=== PATIENT | female | born 1960 | race Caucasian/White ===

== ENCOUNTER → 2017-12-01 09:07 | Outpatient (POV) | payer BC, SELFPAY ==
[2017-12-01 09:24] VITALS: BP 148/107; PULSE 89; RESP 18; O2SAT 98
--- NOTE | 2017-12-01 09:51 | HMH.PMCON ---
Assessment and Plan (1) Postlaminectomy syndrome Current visit: Yes Status: Chronic Category: Medical Code(s): M96.1 - Postlaminectomy syndrome, not elsewhere classified (2) Degenerative disc disease, cervical Current visit: Yes Status: Chronic Category: Medical Code(s): M50.30 - Other cervical disc degeneration, unspecified cervical region (3) Cervical radiculopathy Current visit: Yes Status: Chronic Category: Medical Code(s): M54.12 - Radiculopathy, cervical region (4) Cervical spondylosis Current visit: Yes Status: Chronic Category: Medical Code(s): M47.812 - Spondylosis without myelopathy or radiculopathy, cervical region - Assessment and plan all Dx Assessment and Plan for all problems:: We will schedule the patient for a psychological evaluation to determine if she is a neurostimulator candidate. I believe given her symptomology she may receive good relief long-term with this therapy. Patient and I had a discussion about the trial and implantation process. I answered all her questions and provided information for her. Patient is going to call the office if she has any additional questions. Patient has tried and failed multiple therapies over the years. I believe that this may be beneficial to help increase her functionality. I will follow-up with this patient after her trial. This note was dictated using voice recognition software and may contain errors or omissions HPI - Data of Consult Consult date: 12/01/17 Requesting Physician: Shima Alegre APRN Primary Care Provider: Referral Provider, - Consult Narrative Reason for consult: Neck pain History of present illness: Ms. Villalba is a 57 year old female who presents today for consultation in regards to her neck pain. Patient has had previous laminotomy and foraminotomy with decompression at C5-C6. Patient has been controlling her pain utilizing facet joint injections and RFA's of the cervical spine. Patient states that the last for a while however her pain is beginning to return. Patient is interested in more long-term control of her pain symptoms. Patient has tried and failed injections, chiropractic therapy, physical therapy, massage therapy, dry needling, medications, anti-inflammatories. Patient does not want to be on narcotic medications due to side effects. Patient is interested in potentially a neurostimulator trial. Patient rates her pain a 3 out of 10 today. She states is constant. She states it runs up into her skull and into both shoulders and her left arm. CC: Shima Alegre APRN [facility] History I have reviewed the patient's past medical history: Yes Medical History: Reports:: Hyperlipidemia, Hypertension Denies:: Diabetes Mellitus Type 1, Diabetes Mellitus Type 2 Other Medical History: Reports: Arthritis Laterality Cases: Bilateral: Arthroscopy Knee, Arthroscopy Shoulder, Carpal Tunnel Release, Total Knee Replacement Other Surgeries: Yes: Hysterectomy-Total - *Social History Alcohol Intake: never Occupational Status: other Housing: house - Psychiatric History Expresses thoughts of harming self/others: None Suicide Plan Description: Clear *Family Hx:: Hyperlipidemia, Hypertension Review of Systems - Review of Systems ROS General: no recent weight change, no fever, no sleep disturbances Respiratory: no cough, no shortness of air, no recurring pulmonary infections Cardiovascular/Peripheral Vascular: No chest pain, No palpitations, no edema, no shortness of breath. Gastrointestinal: normal bowel movements this time Genitourinary: no incontinence Musculoskeletal: Neck pain, bilateral arm pain Psychiatric: normal mood/ affect Neurological: [denies weakness in extremities], [denies balance issues] Meds Home Medications Medication Instructions Recorded Confirmed Type Aspirin/Acetaminophen/Caffeine 1 each PO DAILY 12/01/17 12/01/17 History [Excedrin Migraine Caplet] De
--- NOTE | 2017-12-01 09:54 | P.CONS_ITS ---
Assessment and Plan (1) Postlaminectomy syndrome Current visit: Yes Status: Chronic Category: Medical Code(s): M96.1 - Postlaminectomy syndrome, not elsewhere classified (2) Degenerative disc disease, cervical Current visit: Yes Status: Chronic Category: Medical Code(s): M50.30 - Other cervical disc degeneration, unspecified cervical region (3) Cervical radiculopathy Current visit: Yes Status: Chronic Category: Medical Code(s): M54.12 - Radiculopathy, cervical region (4) Cervical spondylosis Current visit: Yes Status: Chronic Category: Medical Code(s): M47.812 - Spondylosis without myelopathy or radiculopathy, cervical region - Assessment and plan all Dx Assessment and Plan for all problems:: We will schedule the patient for a psychological evaluation to determine if she is a neurostimulator candidate. I believe given her symptomology she may receive good relief long-term with this therapy. Patient and I had a discussion about the trial and implantation process. I answered all her questions and provided information for her. Patient is going to call the office if she has any additional questions. Patient has tried and failed multiple therapies over the years. I believe that this may be beneficial to help increase her functionality. I will follow-up with this patient after her trial. This note was dictated using voice recognition software and may contain errors or omissions HPI - Data of Consult Consult date: 12/01/17 Requesting Physician: Shima Alegre APRN Primary Care Provider: Referral Provider, - Consult Narrative Reason for consult: Neck pain History of present illness: Ms. Villalba is a 57 year old female who presents today for consultation in regards to her neck pain. Patient has had previous laminotomy and foraminotomy with decompression at C5-C6. Patient has been controlling her pain utilizing facet joint injections and RFA's of the cervical spine. Patient states that the last for a while however her pain is beginning to return. Patient is interested in more long-term control of her pain symptoms. Patient has tried and failed injections, chiropractic therapy, physical therapy, massage therapy, dry needling, medications, anti-inflammatories. Patient does not want to be on narcotic medications due to side effects. Patient is interested in potentially a neurostimulator trial. Patient rates her pain a 3 out of 10 today. She states is constant. She states it runs up into her skull and into both shoulders and her left arm. CC: Shima Alegre APRN [facility] History I have reviewed the patient's past medical history: Yes Medical History: Reports:: Hyperlipidemia, Hypertension Denies:: Diabetes Mellitus Type 1, Diabetes Mellitus Type 2 Other Medical History: Reports: Arthritis Laterality Cases: Bilateral: Arthroscopy Knee, Arthroscopy Shoulder, Carpal Tunnel Release, Total Knee Replacement Other Surgeries: Yes: Hysterectomy-Total - *Social History Alcohol Intake: never Occupational Status: other Housing: house - Psychiatric History Expresses thoughts of harming self/others: None Suicide Plan Description: Clear *Family Hx:: Hyperlipidemia, Hypertension Review of Systems - Review of Systems ROS General: no recent weight change, no fever, no sleep disturbances Respiratory: no cough, no shortness of air, no recurring pulmonary infections Cardiovascular/Peripheral Vascular: No chest pain, No palpitations, no edema, no shortness of breath. Gastrointestinal: normal bowel movements this time
== END ==
PROVIDERS: Visit Provider Clinical Nurse Specialist Family Health
DX: M96.1 Postlaminectomy syndrome, not elsewhere classified (principal); M50.30 Other cervical disc degeneration, unspecified cervical region; M54.12 Radiculopathy, cervical region; M47.812 Spondylosis without myelopathy or radiculopathy, cervical region
CPT/HCPCS: 99202

== ENCOUNTER → 2018-04-26 10:28 | Outpatient (POV) | payer BC, SELFPAY ==
[2018-04-26 10:48] VITALS: BP 137/98; PULSE 79; RESP 18; O2SAT 98; BMI 30.9
--- NOTE | 2018-04-26 11:06 | P.CONS_ITS ---
[facility] Pain Management SOAP Note Subjective:: Patient is a pleasant 57-year-old white female who presents today for follow-up. At her first visit we had sent her for psychological evaluation to determine if she was a good spinal cord stimulator candidate. Patient was determined to be a good candidate however patient would like to be consulted by a neurosurgeon prior to deciding. Patient is interested in a more long-term control of her pain symptoms. Patient has had a laminotomy and a foraminotomy with decompression of the C5-C6. Patient states that her pain has returned and she is now having weakness in her arms along with pain and numbness and tingling which is very positional. Patient has not had an MRI for quite some time. Patient's tried and failed injections, chiropractic therapy, physical therapy, massage therapy, dry needling, medications, anti-inflammatories. Patient is unable to take narcotic medications due to side effects. She rates her pain today a 6 out of 10. ROS General: no recent weight change, no fever, no sleep disturbances Respiratory: no cough, no shortness of air, no recurring pulmonary infections Cardiovascular/Peripheral Vascular: No chest pain, No palpitations, no edema, no shortness of breath. Gastrointestinal: no incontinence, normal bowel movements reported Genitourinary: no incontinence Musculoskeletal: Neck pain, arm pain Psychiatric: normal mood/ affect Neurological: [denies weakness in extremities], [denies balance issues] Objective:: Physical Exam General: Alert and oriented x3, no acute distress, pleasant and cooperative, [on room air] Lungs: Resps E/U, Symmetrical chest expansion, Eyes: PERRL Musculoskeletal: Flexion and extension of cervical spine somewhat guarded secondary to pain, deep tendon reflexes normal, strength in upper and lower extremities [5/5], normal gait noted Neurological: speech clear, child care center administrator equal, no gross sensory deficits Assessment:: Postlaminectomy syndrome, degenerative disc disease cervical spinal cervical radiculopathy Plan:: We will schedule new cervical MRI for the patient. We will follow-up with her and discuss the findings after her MRI is complete. We will also send her to Dr. Feliciano for a consultation. I have instructed the patient to call the office if she has any issues prior to her next appointment. This note was dictated using voice recognition software and may contain errors or omissions
--- NOTE | 2018-04-28 14:43 | PC.NURSE ---
VOICEMAIL LEFT FOR PT TO RETURN CALL. PT IS SCHEDULED WITH DR JOSELUIS COHEN May AT 1130AM. PT WILL BE INSTRUCTED TO TAKE A COPY OF HER MRI WITH HER TO APPT.
== END ==
PROVIDERS: Visit Provider Clinical Nurse Specialist Family Health
DX: M96.1 Postlaminectomy syndrome, not elsewhere classified (principal); M50.10 Cervical disc disorder with radiculopathy, unspecified cervical region
CPT/HCPCS: 99213

== ENCOUNTER → 2018-05-31 13:45 | Outpatient (POV) | payer BC, SELFPAY ==
[2018-05-31 14:01] VITALS: BP 147/95; PULSE 99; RESP 18; O2SAT 98; BMI 30.9
--- NOTE | 2018-05-31 14:10 | HMH.PAINSOAP ---
[facility] Pain Management SOAP Note Subjective:: Patient is a pleasant 57-year-old white female who presents today for follow-up. Patient was denied her MRI. Consent for psychological evaluation to determine if she was a good spinal cord stimulator candidate. She was deemed a good candidate however she wanted a consult from her neurosurgeon prior to deciding. I do believe that that would be in her best interest. Patient is unable to get an MRI due to her insurance denial. Patient has had a laminotomy and foraminotomies with decompression of the C5-C6 levels in the past. She states that her pain is returned and is now having weakness in her arms. Patient rates her pain a 5 out of 10 today. Patient has tried and failed injections, chiropractic therapy, physical, massage therapy, dry needling, medications, anti-inflammatories. Patient is unable to take narcotic medications due to side effects. Patient is having some muscle cramps in her cervical paraspinous due to pain. We will set her up for some trigger point injections. ROS General: no recent weight change, no fever, no sleep disturbances Respiratory: no cough, no shortness of air, no recurring pulmonary infections Cardiovascular/Peripheral Vascular: No chest pain, No palpitations, no edema, no shortness of breath. Gastrointestinal: no incontinence, normal bowel movements reported Genitourinary: no incontinence Musculoskeletal: Neck pain, arm pain, myofascial pain Psychiatric: normal mood/ affect Neurological: [denies weakness in extremities], [denies balance issues] Objective:: Physical Exam General: Alert and oriented x3, no acute distress, pleasant and cooperative, [on room air] Lungs: Resps E/U, Symmetrical chest expansion, Eyes: PERRL Musculoskeletal: Flexion and extension of cervical spine somewhat guarded secondary to pain, deep tendon reflexes normal, strength in upper and lower extremities [5/5], normal gait noted Neurological: speech clear, chief innovation officer equal, no gross sensory deficits Assessment:: degenerative disc disease cervical spine with cervical postlaminectomy syndrome, myofascial pain syndrome Plan:: We will schedule cervical trigger point bilateral paraspinous. I do believe she still needs an MRI. We may return to the neurostimulator if we cannot get a neurosurgical consultation. This note was dictated using voice recognition software and may contain errors or omissions
--- NOTE | 2018-05-31 14:13 | P.CONS_ITS ---
[facility] Pain Management SOAP Note Subjective:: Patient is a pleasant 57-year-old white female who presents today for follow-up. Patient was denied her MRI. Consent for psychological evaluation to determine if she was a good spinal cord stimulator candidate. She was deemed a good candidate however she wanted a consult from her neurosurgeon prior to deciding. I do believe that that would be in her best interest. Patient is unable to get an MRI due to her insurance denial. Patient has had a laminotomy and foraminotomies with decompression of the C5-C6 levels in the past. She states that her pain is returned and is now having weakness in her arms. Patient rates her pain a 5 out of 10 today. Patient has tried and failed injections, chi ropractic therapy, physical, massage therapy, dry needling, medications, anti- inflammatories. Patient is unable to take narcotic medications due to side effects. Patient is having some muscle cramps in her cervical paraspinous due to pain. We will set her up for some trigger point injections. ROS General: no recent weight change, no fever, no sleep disturbances Respiratory: no cough, no shortness of air, no recurring pulmonary infections Cardiovascular/Peripheral Vascular: No chest pain, No palpitations, no edema, no shortness of breath. Gastrointestinal: no incontinence, normal bowel movements reported Genitourinary: no incontinence Musculoskeletal: Neck pain, arm pain, myofascial pain Psychiatric: normal mood/ affect Neurological: [denies weakness in extremities], [denies balance issues] Objective:: Physical Exam General: Alert and oriented x3, no acute distress, pleasant and cooperative, [on room air] Lungs: Resps E/U, Symmetrical chest expansion, Eyes: PERRL Musculoskeletal: Flexion and extension of cervical spine somewhat guarded secondary to pain, deep tendon reflexes normal, strength in upper and lower extremities [5/5], normal gait noted Neurological: speech clear, dry kiln loader equal, no gross sensory deficits Assessment:: degenerative disc disease cervical spine with cervical postlaminectomy syndrome, myofascial pain syndrome Plan:: We will schedule cervical trigger point bilateral paraspinous. I do believe she still needs an MRI. We may return to the neurostimulator if we cannot get a neurosurgical consultation. This note was dictated using voice recognition software and may contain errors or omissions
== END ==
PROVIDERS: Visit Provider Clinical Nurse Specialist Family Health
DX: M50.90 Cervical disc disorder, unspecified, unspecified cervical region (principal); M96.1 Postlaminectomy syndrome, not elsewhere classified; M79.18 Myalgia, other site
CPT/HCPCS: 99213

== ENCOUNTER → 2018-07-13 09:17 | Outpatient (POV) | payer BC, SELFPAY ==
[2018-07-13 09:28] VITALS: BP 177/98; PULSE 92; RESP 18; O2SAT 98; BMI 32.4
--- NOTE | 2018-07-13 10:04 | P.CONS_ITS ---
[facility] Pain Management SOAP Note Subjective:: Patient is a pleasant 57-year-old white female who presents today for follow-up. Patient was denied her MRI. Patient and I discussed a stimulator however she would like to hold off on that. Patient is having neck pain radiating into her left side. She did have trigger point injections which did not last very long. She presents today with her [id number]. Patient has had laminotomies and foraminotomies with decompression of C5-C6 in the past. Patient has not had any recent epidural steroid injections however she did used to get facet joint injections, RFA's and epidurals from Dr. So. She rates her pain a 6 out of 10 today. She is tried and failed injections, chiropractic therapy, physical therapy, massage therapy, dry needling, medications, anti-inflammatories. She is unable to take narcotic medication due to side effects. Patient is interested in seeing Dr. Mcmahan. ROS General: no recent weight change, no fever, no sleep disturbances Respiratory: no cough, no shortness of air, no recurring pulmonary infections Cardiovascular/Peripheral Vascular: No chest pain, No palpitations, no edema, no shortness of breath. Gastrointestinal: no incontinence, normal bowel movements reported Genitourinary: no incontinence Musculoskeletal: Neck pain, left arm pain Psychiatric: normal mood/ affect Neurological: [denies weakness in extremities], [denies balance issues] Objective:: Physical Exam General: Alert and oriented x3, no acute distress, pleasant and cooperative, [on room air] Lungs: Resps E/U, Symmetrical chest expansion, Eyes: PERRL Musculoskeletal: Flexion and extension of cervical spine somewhat guarded secondary to pain, deep tendon reflexes normal, strength in upper and lower extremities [5/5], normal gait noted Neurological: speech clear, biofuels product manager equal, no gross sensory deficits Assessment:: Degenerative disc disease cervical spinal cervical radiculopathy, postlaminectomy Plan:: We will schedule C5-C6 cervical epidural steroid injection to see if this is beneficial. We will order an MRI to help determine pathology and we will send her to a neurosurgeon for consultation. I will follow-up with the patient after her epidural injection. Patient's been instructed to call the office if she has any issues prior to her next appointment. This note was dictated using voice recognition software and may contain errors or omissions
== END ==
PROVIDERS: Visit Provider Clinical Nurse Specialist Family Health
DX: M50.10 Cervical disc disorder with radiculopathy, unspecified cervical region (principal); M96.1 Postlaminectomy syndrome, not elsewhere classified
CPT/HCPCS: 99213

== ENCOUNTER → 2018-08-30 10:21 | Outpatient (POV) | payer BC, SELFPAY ==
[2018-08-30 10:34] VITALS: BP 126/87; PULSE 97; RESP 18; O2SAT 98; BMI 32.5
--- NOTE | 2018-08-30 10:40 | HMH.PAINSOAP ---
[facility] Pain Management SOAP Note Subjective:: Patient is a pleasant 58-year-old white female who presents today to follow-up after her cervical fusion. Patient states she still having a little bit of swelling however the pain has started to alleviate and she has no numbness and tingling in her hands at this time. Patient is utilizing anti-inflammatories to help with the pain. She is having some difficulty with swallowing however since they did an anterior approach she has a little swelling around the incision area. Patient is following up with the surgeon on the of this month. Patient is already weaned herself off of her pain pills. She rates her pain a 6 out of 10 today. ROS General: no recent weight change, no fever, no sleep disturbances Respiratory: no cough, no shortness of air, no recurring pulmonary infections Cardiovascular/Peripheral Vascular: No chest pain, No palpitations, no edema, no shortness of breath. Gastrointestinal: no incontinence, normal bowel movements reported Genitourinary: no incontinence Musculoskeletal: Neck pain Psychiatric: normal mood/ affect Neurological: [denies weakness in extremities], [denies balance issues] Objective:: Physical Exam General: Alert and oriented x3, no acute distress, pleasant and cooperative, [on room air] Lungs: Resps E/U, Symmetrical chest expansion, Eyes: PERRL Musculoskeletal: Flexion and extension of cervical spine somewhat guarded secondary to pain, deep tendon reflexes normal, strength in upper and lower extremities [5/5], normal gait noted Neurological: speech clear, personal shopper equal, no gross sensory deficits Assessment:: Degenerative disc disease cervical spine and postlaminectomy syndrome cervical spine Plan:: We will see the patient back in 1 month and reassess her symptoms at that time. She is been instructed to call the office if she has any issues prior to her next appointment. Dr. Vegas has reviewed this note and agrees with this plan of care. This note was dictated using voice recognition software and may contain errors or omissions
--- NOTE | 2018-08-30 10:43 | P.CONS_ITS ---
[facility] Pain Management SOAP Note Subjective:: Patient is a pleasant 58-year-old white female who presents today to follow-up after her cervical fusion. Patient states she still having a little bit of swelling however the pain has started to alleviate and she has no numbness and tingling in her hands at this time. Patient is utilizing anti-inflammatories to help with the pain. She is having some difficulty with swallowing however since they did an anterior approach she has a little swelling around the incision area. Patient is following up with the surgeon on the of this month. Patient is already weaned herself off of her pain pills. She rates her pain a 6 out of 10 today. ROS General: no recent weight change, no fever, no sleep disturbances Respiratory: no cough, no shortness of air, no recurring pulmonary infections Cardiovascular/Peripheral Vascular: No chest pain, No palpitations, no edema, no shortness of breath. Gastrointestinal: no incontinence, normal bowel movements reported Genitourinary: no incontinence Musculoskeletal: Neck pain Psychiatric: normal mood/ affect Neurological: [denies weakness in extremities], [denies balance issues] Objective:: Physical Exam General: Alert and oriented x3, no acute distress, pleasant and cooperative, [on room air] Lungs: Resps E/U, Symmetrical chest expansion, Eyes: PERRL Musculoskeletal: Flexion and extension of cervical spine somewhat guarded secondary to pain, deep tendon reflexes normal, strength in upper and lower extremities [5/5], normal gait noted Neurological: speech clear, hair tinter equal, no gross sensory deficits Assessment:: Degenerative disc disease cervical spine and postlaminectomy syndrome cervical spine Plan:: We will see the patient back in 1 month and reassess her symptoms at that time. She is been instructed to call the office if she has any issues prior to her next appointment. Dr. Vegas has reviewed this note and agrees with this plan of care. This note was dictated using voice recognition software and may contain errors or omissions
== END ==
PROVIDERS: Visit Provider Clinical Nurse Specialist Family Health
DX: M50.30 Other cervical disc degeneration, unspecified cervical region (principal); M96.1 Postlaminectomy syndrome, not elsewhere classified
CPT/HCPCS: 99213

== ENCOUNTER 2018-12-18 18:57 | Emergency (ER) | payer BC, SELFPAY ==
[2018-12-18 19:17] VITALS: BP 120/90; PULSE 74; RESP 16; TEMP 36.6; O2SAT 100; BMI 31.7
--- NOTE | 2018-12-18 20:02 | HMH.EDUTC ---
[facility] [place] Disposition Clinical Impression: Poison anival dermatitis Disposition: Home, Self-Care Condition on Discharge: Good Instructions: Poison Anival, Poison [place], Poison [place], DI for Poison Anival Allergy Additional Instructions: Take medication as prescribed FOllow up with family doctor if no improvement or any worsening of rash *Over the counter Calamine lotion may help to dry rash *Aveeno oatmeal baths may help to dry the rash DO not scratch Straight to ER if any life threatening symptoms FOlow up with Dr Moreau if you notice the rash on eyelids or in eye Prescriptions: predniSONE [Prednisone 5mg Tab Dose-Pack] 5 mg PO UD DOSE PK 12 Days #48 pack Referrals: Joel Sherwood [Primary Care Provider] - As needed Time of Disposition: 20:11 Medical Decision Making - Yahir Inquiry Pt receiving controlled substance: No Yahir was queried for this patient: No Vital Signs: 12/18/18 19:17 12/18/18 20:32 Temperature 97.9 F 97.9 F Temperature Source Oral Oral Pulse Rate 74 Pulse Rate [Right Brachial] 74 Respiratory Rate 16 16 Blood Pressure 120/90 Blood Pressure [Right Arm] 120/90 Blood Pressure Mean [Right Arm] 100 Blood Pressure Source Automatic Cuff Blood Pressure Source [Right Arm] Automatic Cuff Blood Pressure Position Sitting Blood Pressure Position [Right Arm] Sitting 02 Sat by Pulse Oximetry 100 Oxygen Delivery Method Room Air Room Air Orders (Tests/Meds): ED MEDICATIONS Discontinued Medications Generic Name Dose Route Start Last Admin Trade Name Freq PRN Reason Stop Dose Admin Methylprednisolone Sodium Succinate 125 mg 12/18/18 20:08 12/18/18 20:17 Solu-Medrol 125mg/2ml Vial IM 12/18/18 20:09 125 mg ONCE ONE Administration - Reevaluation(s) Time: 20:05 Reevaluation #1: Patient state that she is not allergic to steriods or flonase State that she has had solu medrol before without complication or reaction [facility] [place] HPI - General Stated complaint: Rash Time Seen by Provider: 12/18/18 19:40 Mode of Arrival: Family Vehicle Source of Information: Patient Limitations: No Limitations Description of Symptoms (Recalled from Triage Doc. by RN): C/O POISON ANIVAL ALL OVER X 3 DAYS HEENT Symptoms (Recalled from RN notes): No Resp Symptoms (Recalled from RN notes): No Skin Symptoms (Recalled from RN notes): Yes MS Symptoms (Recalled from RN notes): No Functional Status (Recalled from RN notes): N/A - History of Present Illness Provider Complaint: Patient states that she is highly allergic to poison anival States that she was outside working in her yard and unsure where she may have came into contact with it but has it on her nose, under her eyes, on her face, breast, arms and legs States that she noticed it yesterday and has been trying over the counter Lotions but they haven't helped - Related Data Home Medications Medication Instructions Recorded Confirmed Aspirin/Acetaminophen/Caffeine 1 each PO DAILY 12/01/17 07/30/18 [Excedrin Migraine Caplet] Desvenlafaxine Succinate [Pristiq] 100 mg PO DAILY 12/01/17 07/30/18 Estrogens, Conjugated [Premarin 0.625 mg PO DAILY 12/01/17 07/30/18 0.625mg tablet] Famciclovir 250 mg PO DAILY 12/01/17 07/30/18 Ibuprofen [Motrin Ib] 400 mg PO Q4-6H 12/01/17 07/30/18 Rosuvastatin Calcium [Crestor] 5 mg PO DAILY 12/01/17 07/30/18 Previous Rx's Medication Instructions Recorded predniSONE [Prednisone 5mg Tab 5 mg PO UD DOSE PK 12 Days #48 pack 12/18/18 Dose-Pack] Allergies Allergy/AdvReac Type Severity Reaction Status Date / Time levofloxacin [From Levaquin] Allergy Intermediate Hives Verified 07/30/18 08:56 Penicillins Allergy Intermediate Hives Verified 07/30/18 08:56 cyclobenzaprine Allergy Verified 06/11/18 09:04 [From Flexeril] diclofenac Allergy Verified 06/11/18 09:04 doxepin Allergy Verified 06/11/18 09:04 - Worker's Comp Is this a Worker's Comp case?: No [facility] History - Hepatitis A Screen Drug use history
--- NOTE | 2018-12-18 20:05 | ED_ITS ---
[facility] [place] Disposition Clinical Impression: Poison anival dermatitis Disposition: Home, Self-Care Condition on Discharge: Good Instructions: Poison [place], Poison [place], Poison [place], DI for Poison Anival Allergy Additional Instructions: Take medication as prescribed FOllow up with family doctor if no improvement or any worsening of rash *Over the counter Calamine lotion may help to dry rash *Aveeno oatmeal baths may help to dry the rash DO not scratch Straight to ER if any life threatening symptoms FOlow up with Dr Moreau if you notice the rash on eyelids or in eye Prescriptions: predniSONE [Prednisone 5mg Tab Dose-Pack] 5 mg PO UD DOSE PK 12 Days #48 pack Referrals: Joel Sherwood [Primary Care Provider] - As needed Time of Disposition: 20:11 Medical Decision Making - Yahir Inquiry Pt receiving controlled substance: No Yahir was queried for this patient: No Vital Signs: 12/18/18 19:17 12/18/18 20:32 Temperature 97.9 F 97.9 F Temperature Source Oral Oral Pulse Rate 74 Pulse Rate [Right Brachial] 74 Respiratory Rate 16 16 Blood Pressure 120/90 Blood Pressure [Right Arm] 120/90 Blood Pressure Mean [Right Arm] 100 Blood Pressure Source Automatic Cuff Blood Pressure Source [Right Arm] Automatic Cuff Blood Pressure Position Sitting Blood Pressure Position [Right Arm] Sitting 02 Sat by Pulse Oximetry 100 Oxygen Delivery Method Room Air Room Air Orders (Tests/Meds): ED MEDICATIONS Discontinued Medications Generic Name Dose Route Start Last Admin Trade Name Freq PRN Reason Stop Dose Admin Methylprednisolone Sodium Succinate 125 mg 12/18/18 20:08 12/18/18 20:17 Solu-Medrol 125mg/2ml Vial IM 12/18/18 20:09 125 mg ONCE ONE Administration - Reevaluation(s) Time: 20:05 Reevaluation #1: Patient state that she is not allergic to steriods or flonase State that she has had solu medrol before without complication or reaction [facility] [place] HPI - General Stated complaint: Rash Time Seen by Provider: 12/18/18 19:40 Mode of Arrival: Family Vehicle Source of Information: Patient Limitations: No Limitations Description of Symptoms (Recalled from Triage Doc. by RN): C/O POISON ANIVAL ALL OVER X 3 DAYS HEENT Symptoms (Recalled from RN notes): No Resp Symptoms (Recalled from RN notes): No Skin Symptoms (Recalled from RN notes): Yes MS Symptoms (Recalled from RN notes): No Functional Status (Recalled from RN notes): N/A - History of Present Illness Provider Complaint: Patient states that she is highly allergic to poison anival States that she was outside working in her yard and unsure where she may have came into contact with it but has it on her nose, under her eyes, on her face, breast, arms and legs States that she noticed it yesterday and has been trying over the counter Lotions but they haven't helped - Related Data Home Medications Medication Instructions Recorded Confirmed Aspirin/Acetaminophen/Caffeine 1 each PO DAILY 12/01/17 07/30/18 [Excedrin Migraine Caplet] Desvenlafaxine Succinate [Pristiq] 100 mg PO DAILY 12/01/17 07/30/18 Estrogens, Conjugated [Premarin 0.625 mg PO DAILY 12/01/17 07/30/18 0.625mg tablet] Famciclovir 250 mg PO DAILY 12/01/17 07/30/18 Ibuprofen
[2018-12-18 20:32] VITALS: BP 120/90; PULSE 74; RESP 16; TEMP 36.6; O2SAT 100
== END 2018-12-18 20:48 | disposition home or self-care (01) ==
PROVIDERS: Emergency Provider Nurse Practitioner; PCP Family Medicine
DX: L23.7 Allergic contact dermatitis due to plants, except food (principal); E78.5 Hyperlipidemia, unspecified; I10 Essential (primary) hypertension; Z87.891 Personal history of nicotine dependence; Z88.0 Allergy status to penicillin; Z88.8 Allergy status to other drugs, medicaments and biological substances
CPT/HCPCS: 96372; 99201